=== PATIENT | female | born 1990 | race Caucasian/White ===

== ENCOUNTER 2018-06-18 20:11 | Emergency (ER) | payer OTHER ==
[2018-06-18 20:24] VITALS: BP 141/72; PULSE 87; TEMP 98.3; BMI 37.8
--- NOTE | 2018-06-18 21:48 | PDOC ---
History of Present Illness - General Chief Complaint: Pain Stated Complaint: EAR INFECTION Time Seen by Provider: 06/18/18 21:38 - History of Present Illness Initial Comments: 06/18/18 21:46 28-year-old female without comorbidities presents for evaluation of left ear pain 1 week and right ear congestion. No pain in the right ear. No other associated symptoms. No fever Past History - Past Medical History Allergies/Adverse Reactions: Allergies Allergy/AdvReac Type Severity Reaction Status Date / Time Penicillins Allergy Mild Rash Verified 04/25/12 20:26 Home Medications: Ambulatory Orders Cetirizine HCl [Zyrtec] 10 mg PO DAILY #10 tablet 04/25/12 No Home Medications 0 dose .ROUTE UTDICT 04/25/12 Budesonide [Rhinocort Allergy] 1 spray NS ONCE #1 spray.pump 06/18/18 Cetirizine HCl/Pseudoephedrine [Zyrtec-D Tablet] 1 each PO DAILY #30 tab.er.12h 06/18/18 COPD: No Psychiatric Problems: Yes (psyc hx as per mom) - Suicide/Smoking/Psychosocial Hx Smoking Status: No Smoking History: Never smoked Have you smoked in the past 12 months: No Number of Cigarettes Smoked Daily: 0 Information on smoking cessation initiated: No Hx Alcohol Use: No Drug/Substance Use Hx: No Substance Use Type: None Review of Systems - Review of Systems HEENTM: Yes: See HPI, Ear Pain All Other Systems: Reviewed and Negative *Physical Exam - Vital Signs Last Vital Signs Temp Pulse Resp BP Pulse Ox 98.3 F 87 20 141/72 98 06/18/18 20:22 06/18/18 20:22 06/18/18 20:22 06/18/18 20:22 06/18/18 20:22 - Physical Exam Comments: HEAD: NC/AT EYES: Conjuntiva clear Ears: Canals and TM's normal slightly bulging NOSE: No d/c THROAT: Moist mucous membrances, oral pharanx clear, uvula midline NECK: Supple without adenopathy CARDIAC: S1 S2 LUNGS: CTA Full and Equal breath sounds ABDOMEN: Soft NT ND MS: Full ROM in all joints without edema NEUROLOGIC: No gross sensory or motor deficits, NVID SKIN: Normal color and temperature no lesions or rashes 06/18/18 21:46 Medical Decision Making - Medical Decision Making 06/18/18 21:47 based on clinical findings I would attribute this ear pain to ALLERGIES I will prescribe her decongestant and nasal sprain her follow-up with ENT *DC/Admit/Observation/Transfer Diagnosis at time of Disposition: Seasonal allergies - Discharge Dispostion Disposition: HOME Condition at time of disposition: Stable Decision to Admit order: No - Prescriptions Prescriptions: Budesonide [Rhinocort Allergy] 1 spray NS ONCE #1 spray.pump Cetirizine HCl/Pseudoephedrine [Zyrtec-D Tablet] 1 each PO DAILY #30 tab.er.12h - Referrals Referrals: Tex Tariq [Primary Care Provider] - Thuan Zamudio MD [Staff Physician] - - Patient Instructions Additional Instructions: Return to the emergency room should symptoms worsen or go unresolved. Please take the medication I have prescribed a few as directed. Follow-up with your nose and throat doctor in one to 2 days for further evaluation and treatment options. You may supplement the medication with Tylenol for pain or Motrin as directed - Post Discharge Activity
== END 2018-06-18 21:52 | disposition home or self-care (01) ==
LOC: JERFT 20:11
DX: J30.2 Other seasonal allergic rhinitis (principal)
CPT/HCPCS: 99281-25

== ENCOUNTER 2022-05-31 10:10 | Observation (INO) | payer OTHER ==
[2022-05-31] MEDS ORDERED: ALPRAZolam 0.25 MG TABLET PO ONE (11:36)
[2022-05-31] MEDS ORDERED: ALPRAZolam 1 MG TABLET ONE (12:13)
[2022-05-31 12:41] LABS: INR 1.02 (0.83-1.09); PROTHROMBIN TIME (PATIENT) 11.7 SEC (9.7-13.0)
[2022-05-31 12:42] LABS: BASO % 0.7 % (0-2.0); EOS % 0.3 % (0-4.5); HEMOGLOBIN 13.7 GM/dL (10.7-15.3); LYMPH % 17.3 % (8-40); MCH 32.1 pg (25.7-33.7); MCHC 34.2 g/dl (32.0-36.0); MEAN CELL VOLUME 94.1 fl (80-96); MEAN PLT VOLUME 8.4 fl (7.5-11.1); MONO % 5.1 % (3.8-10.2); NEUT % 76.6 % (42.8-82.8); PLATELET COUNT 293 10^3/uL (134-434); RBC 4.25 M/mm3 (3.60-5.2); RDW 12.4 % (11.6-15.6); WHITE BLOOD COUNT 11.3 K/mm3 (4.0-10.0)
[2022-05-31 12:46] LABS: CHLORIDE 107 mmol/L (98-107); SODIUM 141 mmol/L (136-145)
[2022-05-31 12:48] LABS: CALCIUM 9.2 mg/dL (8.5-10.1)
[2022-05-31 12:49] LABS: ALBUMIN 4.1 g/dl (3.4-5.0); ANION GAP 8 MMOL/L (8-16); BLOOD UREA NITROGEN 15.3 mg/dL (7-18); CO2 26 mmol/L (21-32); GLUCOSE,RANDOM 86 mg/dL (74-106)
[2022-05-31 12:52] LABS: CREATININE 0.6 mg/dL (0.55-1.3); SGOT/AST 19 U/L (15-37); SGPT/ALT 27 U/L (13-61)
[2022-05-31 12:54] LABS: BILIRUBIN,TOTAL 0.5 mg/dL (0.2-1); TOT PROT 7.3 g/dl (6.4-8.2)
[2022-05-31 12:55] LABS: ALK PHOS 69 U/L (45-117)
[2022-05-31 13:05] LABS: PLATELET ESTIMATE ADEQUATE
[2022-05-31] MEDS ORDERED: OLANZapine 5 MG TABLET PO ONE (14:16)
[2022-05-31] MEDS ORDERED: OLANZapine 10 MG TABLET ONE (14:34)
[2022-05-31 22:29] LABS: BASO % 0.5 % (0-2.0); EOS % 2.8 % (0-4.5); HEMATOCRIT 36.1 % (32.4-45.2); HEMOGLOBIN 12.3 GM/dL (10.7-15.3); LYMPH % 33.7 % (8-40); MCH 32.1 pg (25.7-33.7); MEAN CELL VOLUME 94.3 fl (80-96); MEAN PLT VOLUME 7.3 fl (7.5-11.1); MONO % 8.4 % (3.8-10.2); NEUT % 54.6 % (42.8-82.8); PLATELET COUNT 288 10^3/uL (134-434); RBC 3.82 M/mm3 (3.60-5.2); RDW 12.5 % (11.6-15.6); WHITE BLOOD COUNT 8.2 K/mm3 (4.0-10.0)
[2022-06-01 08:18] LABS: BASO % 0.4 % (0-2.0); EOS % 3.2 % (0-4.5); HEMATOCRIT 35.7 % (32.4-45.2); LYMPH % 32.5 % (8-40); MCH 31.9 pg (25.7-33.7); MCHC 33.7 g/dl (32.0-36.0); MEAN CELL VOLUME 94.8 fl (80-96); MEAN PLT VOLUME 7.8 fl (7.5-11.1); MONO % 7.1 % (3.8-10.2); NEUT % 56.8 % (42.8-82.8); PLATELET COUNT 267 10^3/uL (134-434); RBC 3.76 M/mm3 (3.60-5.2); RDW 12.6 % (11.6-15.6)
[2022-06-01] MEDS ORDERED: ENOXAPARIN NA (PORCINE) 40 MG/0.4 ML DISP.SYRIN SQ ONE (08:53)
[2022-06-01] MEDS ORDERED: OLANZapine 10 MG TABLET ONE (08:53)
[2022-06-01] MEDS: OLANZapine 5 MG TABLET PO SCH (09:05)
[2022-06-01] MEDS: ENOXAPARIN NA (PORCINE) 40 MG/0.4 ML DISP.SYRIN SQ SCH (09:05)
[2022-06-01 09:57] LABS: ALBUMIN 3.4 g/dl (3.4-5.0); BLOOD UREA NITROGEN 15.7 mg/dL (7-18); CALCIUM 8.8 mg/dL (8.5-10.1); MAGNESIUM 2.2 mg/dL (1.8-2.4)
[2022-06-01 09:59] LABS: PHOSPHOROUS 3.5 mg/dL (2.5-4.9)
[2022-06-01 10:00] LABS: CREATININE 0.6 mg/dL (0.55-1.3)
[2022-06-01 10:01] LABS: BILIRUBIN,TOTAL 0.5 mg/dL (0.2-1); TOT PROT 6.3 g/dl (6.4-8.2)
[2022-06-02 00:13] VITALS: RESP 20
[2022-06-02 00:54] VITALS: BMI 34.4
[2022-06-02] MEDS ORDERED: clonazePAM 0.5 MG TABLET PO ONE (00:59)
[2022-06-02 07:36] LABS: HEMATOCRIT 33.2 % (32.4-45.2); HEMOGLOBIN 11.4 GM/dL (10.7-15.3); MCH 32.5 pg (25.7-33.7); MCHC 34.4 g/dl (32.0-36.0); MEAN CELL VOLUME 94.4 fl (80-96); MEAN PLT VOLUME 7.6 fl (7.5-11.1); PLATELET COUNT 243 10^3/uL (134-434); RBC 3.51 M/mm3 (3.60-5.2); RDW 12.4 % (11.6-15.6); WHITE BLOOD COUNT 6.7 K/mm3 (4.0-10.0)
[2022-06-02 08:09] LABS: CALCIUM 8.5 mg/dL (8.5-10.1)
[2022-06-02 08:10] LABS: BLOOD UREA NITROGEN 14.9 mg/dL (7-18); MAGNESIUM 2.5 mg/dL (1.8-2.4)
[2022-06-02 08:13] LABS: CREATININE 0.5 mg/dL (0.55-1.3); PHOSPHOROUS 3.8 mg/dL (2.5-4.9)
[2022-06-02 08:15] LABS: BILIRUBIN,TOTAL 0.5 mg/dL (0.2-1); TOT PROT 5.9 g/dl (6.4-8.2)
[2022-06-02] MEDS: OLANZapine 5 MG TABLET PO SCH (11:23)
[2022-06-02] MEDS: ENOXAPARIN NA (PORCINE) 40 MG/0.4 ML DISP.SYRIN SQ SCH (11:23)
[2022-06-02 13:25] LABS: OPIATES, URI NEGATIVE (NEGATIVE); PHENCYCLIDINE,URINE NEGATIVE (NEGATIVE); URINE BARBITURATES NEGATIVE (NEGATIVE); URINE BENZODIAZEPINES NEGATIVE (NEGATIVE)
[2022-06-02 13:26] LABS: COCAINE, UR NEGATIVE (NEGATIVE); METHADONE, UR NEGATIVE (NEGATIVE); URINE AMPHETAMINES NEGATIVE (NEGATIVE)
[2022-06-02 13:27] VITALS: BP 100/58; PULSE 70; TEMP 97.9
== END 2022-06-02 13:37 ==
LOC: JER 10:10 → JERBED 20:32 → J7W 06-01 22:51
PROVIDERS: ADMIT Internal Medicine; ATTEND Internal Medicine
DX: F31.9 Bipolar disorder, unspecified (principal); F41.9 Anxiety disorder, unspecified; F22 Delusional disorders; Z88.0 Allergy status to penicillin; E66.8 Other obesity; Z68.34 Body mass index [BMI] 34.0-34.9, adult; Z29.8 Encounter for other specified prophylactic measures
CPT/HCPCS: 36415; 70450-TC; 71045-TC-FY; 80053; 80307; 83735; 84100; 84703; 85025; 85027; 85610; 93005; 93010; 99285-25; C9803-CS; G0378; U0003; U0005